=== PATIENT | male | born 1990 | race Caucasian/White ===

== ENCOUNTER 2022-06-03 08:24 | Outpatient (CLI) | payer BC ==
[2022-06-03] MEDS ORDERED: Iopamidol 370 76% 100 ML VIAL ONE (08:32)
== END 2022-06-03 08:25 | disposition home or self-care (01) ==
LOC: CT 08:24
PROVIDERS: ATTEND Internal Medicine Gastroenterology
DX: R10.33 Periumbilical pain (principal); K57.30 Diverticulosis of large intestine without perforation or abscess without bleeding
CPT/HCPCS: 74178; Q9967